=== PATIENT | female | born 1995 | race Caucasian/White ===

== ENCOUNTER → 2020-09-18 15:20 | Outpatient (BNVA) | payer OTHER, SELFPAY | PROVIDERS: PCP Family Medicine; Visit Provider Advanced Practice Midwife | DX: Z01.419 Encounter for gynecological examination (general) (routine) without abnormal findings (principal); N92.6 Irregular menstruation, unspecified; N89.8 Other specified noninflammatory disorders of vagina; Z80.9 Family history of malignant neoplasm, unspecified | CPT/HCPCS: 81025 ==

== ENCOUNTER 2020-11-19 10:43 | Outpatient (REF) | payer OTHER, SELFPAY ==
[2020-11-19 16:59] LABS: CT PCR DETECTED (Not Detect.); NG PCR NOT DETECTED (Not Detect.)
[2020-11-20 08:11] LABS: Syphilis Screen Nonreactive (Nonreactive)
[2020-11-20 08:28] LABS: HBc Num1 0.08 S/CO (0.00-0.79); HIV AB/AG Nonreactive (Nonreactive); HIV Num 1 0.07 S/CO (0.00-0.99); Hepatitis B Core Antibody Nonreactive (Nonreactive); ~HepC Num1 0.08 S/CO (0.00-0.79); ~Hepatitis C Antibody Nonreactive (Nonreactive)
[2020-11-20 09:50] LABS: BV Int Neg Control Negative (Negative); BV Int Pos Control Positive (Positive)
== END 2020-11-19 10:44 | disposition home or self-care (01) ==
LOC: HO.LAB 10:43
PROVIDERS: PCP Family Medicine; Visit Provider Advanced Practice Midwife
DX: Z11.4 Encounter for screening for human immunodeficiency virus [HIV] (principal); N89.8 Other specified noninflammatory disorders of vagina; N90.89 Other specified noninflammatory disorders of vulva and perineum; Z20.2 Contact with and (suspected) exposure to infections with a predominantly sexual mode of transmission
CPT/HCPCS: 36415; 86704; 86780; 86803; 87255; 87389; 87480; 87491; 87510; 87591; 87660; 99212

== ENCOUNTER → 2020-12-11 14:06 | Outpatient (BNVA) | payer OTHER, SELFPAY | PROVIDERS: Visit Provider Advanced Practice Midwife | DX: B00.9 Herpesviral infection, unspecified (principal); Z20.2 Contact with and (suspected) exposure to infections with a predominantly sexual mode of transmission | CPT/HCPCS: 99212 ==

== ENCOUNTER 2021-02-10 14:43 | Outpatient (REF) | payer OTHER, SELFPAY ==
[2021-02-11 03:00] LABS: CT PCR NOT DETECTED (Not Detect.); NG PCR NOT DETECTED (Not Detect.)
[2021-02-11 11:03] LABS: BV Int Neg Control Negative (Negative); BV Int Pos Control Positive (Positive)
== END 2021-02-10 14:44 | disposition home or self-care (01) ==
LOC: HO.LAB 14:43
PROVIDERS: Visit Provider Advanced Practice Midwife
DX: B00.9 Herpesviral infection, unspecified (principal); Z20.2 Contact with and (suspected) exposure to infections with a predominantly sexual mode of transmission; Z79.899 Other long term (current) drug therapy; Z30.09 Encounter for other general counseling and advice on contraception
CPT/HCPCS: 87480; 87491; 87510; 87591; 87660; 99212

== ENCOUNTER 2021-11-27 09:50 | Outpatient (REF) | payer OTHER, SELFPAY ==
[2021-11-27 18:14] LABS: CT PCR NOT DETECTED (Not Detect.); NG PCR NOT DETECTED (Not Detect.)
== END 2021-11-27 09:51 | disposition home or self-care (01) ==
LOC: HO.LNP 09:50
PROVIDERS: Visit Provider Advanced Practice Midwife
DX: Z01.419 Encounter for gynecological examination (general) (routine) without abnormal findings (principal); Z20.2 Contact with and (suspected) exposure to infections with a predominantly sexual mode of transmission
CPT/HCPCS: 87491; 87591; 88142

== ENCOUNTER → 2022-04-29 15:49 | Outpatient (BNVA) | payer OTHER, SELFPAY | PROVIDERS: Visit Provider Advanced Practice Midwife | DX: N64.4 Mastodynia (principal); B00.9 Herpesviral infection, unspecified | CPT/HCPCS: 99212 ==

== ENCOUNTER 2022-05-11 13:11 | Outpatient (REF) | payer OTHER, SELFPAY ==
--- NOTE | ~2022-05-11 | US_ITS ---
EXAMINATION: US DIAGNOSTIC ULTRASOUND BREAST, RIGHT CLINICAL INFORMATION: 27-year-old with right breast pain, lateral and periareolar. No palpable mass or discharge. Family history breast cancer, maternal grandmother. History colon and lung cancer. No prior breast imaging. COMPARISON: None (current study represents initial baseline exam). TECHNIQUE: Ultrasound right breast is targeted to the areas of clinical concern. Patient is able to point to the areas of recent symptoms at time of imaging. Grayscale imaging and color Doppler are performed without and with harmonics. FINDINGS: There is no focal suspicious finding. There is no cystic or solid mass, architectural abnormality, duct ectasia, or edema in the soft tissue planes. Results are discussed with the patient at time of visit. Availability of genetic testing is also discussed. US/US breast RT limited IMPRESSION: Normal study. ASSESSMENT: BI-RADS 1: Negative RECOMMENDATION: -Patient's mastodynia should be managed based on the clinical impression. -Genetic testing available if clinically indicated.
== END 2022-05-11 13:12 | disposition home or self-care (01) ==
LOC: HO.MAMMO 13:11
PROVIDERS: Visit Provider Advanced Practice Midwife
DX: N64.4 Mastodynia (principal)
CPT/HCPCS: 76642